=== PATIENT | male | born 1955 | race Caucasian/White ===

== ENCOUNTER 2020-04-01 10:21 | Emergency (ER) | payer BC, OTHER ==
[~2020-04-01] VITALS: Ht 172.7 cm; Wt 99.8 kg
[~2020-04-01 10:21] MED LIST: AMLODIPINE BESY10 MG PO; AVAPRO300 MG PO; FLOMAX0.4 MG PO; KEFLEX500 M1 PO; MELOXICAM7.5 MG OR; MELOXICAM7.5 MG PO
[2020-04-01] MEDS ORDERED: NORVASC 2.5 MG2.5 M1 PO (11:30)
[2020-04-01 11:31] LABS: HEMATOCRIT 42.2 % (42.0-52.0); HEMOGLOBIN 14.5 gm/dL (14.0-18.0); MCHC 34.5 g/dL (28.0-37.0); MCV 92.9 fL (80.0-100.0); RBC 4.54 mil/uL (4.50-6.00); RDW 15.8 % (10.5-14.5); WBC 5.8 thou/uL (4.0-11.0)
[2020-04-01] MEDS ORDERED: POTASSIUM20 PO (11:31)
[2020-04-01 11:39] LABS: CALCIUM 8.4 mg/dL (8.5-10.1); CREATININE 0.7 mg/dL (0.7-1.3)
[2020-04-01 11:43] LABS: INR 1.1; PROTIME 11.6 Seconds (9.3-11.4)
[2020-04-01 11:45] LABS: ALBUMIN 3.3 g/dL (3.4-5.0); TOTAL BILIRUBIN 0.9 mg/dL (<0.1-1.0); TOTAL PROTEIN 7.4 g/dL (6.4-8.2)
[2020-04-01 13:20] VITALS: BP 118/74
== END 2020-04-01 13:20 | disposition home or self-care (01) ==
LOC: ER 10:21
PROVIDERS: Emergency Medicine
DX: S02.841 Fracture of lateral orbital wall, right side (principal); S02.31XB Fracture of orbital floor, right side, initial encounter for open fracture; S02.40CB Maxillary fracture, right side, initial encounter for open fracture; S02.40EB Zygomatic fracture, right side, initial encounter for open fracture; S51.012A Laceration without foreign body of left elbow, initial encounter; M54.2 Cervicalgia; Z85.46 Personal history of malignant neoplasm of prostate; Z85.118 Personal history of other malignant neoplasm of bronchus and lung; Z85.05 Personal history of malignant neoplasm of liver; Z98.890 Other specified postprocedural states; Z79.2 Long term (current) use of antibiotics; Z79.899 Other long term (current) drug therapy; W18.09XA Striking against other object with subsequent fall, initial encounter; Y93.89 Activity, other specified; Y92.89 Other specified places as the place of occurrence of the external cause; Y99.8 Other external cause status